=== PATIENT | male | born 1995 | race Caucasian/White ===

== ENCOUNTER 2025-01-09 04:33 | Emergency (ER) | payer MEDICAID, SELFPAY ==
[2025-01-09 04:45] VITALS: BP 158/96; PULSE 85; RESP 18; TEMP 36.8; O2SAT 93; BMI 43.2
--- NOTE | 2025-01-09 05:11 | ED_ITS ---
HPI - General Adult General: Chief complaint: General Medical Stated complaint: Very bad hemorrhoid Time Seen by Provider: 01/09/25 04:57 History of Present Illness: 29-year-old male presenting with an exte rnal hemorrhoid that has become painful over the last 24 to 48 hours. There is no bleeding. He can feel a lump. He has used Preparation H and other [id number] treatments without relief. Related Data Previous Rx's ?Medication ?Instructions ?Recorded hydrocodone 5 mg-acetaminophen 325 1 tab PO Q8H PRN pa in #7 tabs 01/09/25 mg tablet hydrocortisone acetate 25 mg 25 mg ID BID #12 ea 01/09 rectal suppository (Anusol-HC) Allergies Allergy/AdvReac Type Severity Reaction Status Date / Time No Known Allergies Allergy Verified 01/09/25 04:52 Physical Exam Const: COMMON NORMALS: no acute distress GENERAL APPEARANCE: cooperative; not ill appearing Chest: CHEST: Yes Symmetrical chest wall rise Resp: COMMON NORMALS: normal respiratory effort and No use of accessory muscles Cardio: COMMON NORMALS: regular rate and regular rhythm RATE: regular rate RHYTHM: regular rhythm GI: RECTAL EXAM: Yes hemorrhoids (Small external thrombosed) Neuro: ASHLY COMA SCALE: document GCS findings [place] coma scale eye opening: Spontaneous [place] coma scale verbal response: Orientated [place] coma scale motor response: Obey commands [place] coma scale total score: 15 Course Vital Signs: Vital signs: Vital Signs Temperature 98.3 F 01/09/25 04:45 Pulse Rate 80 01/09/25 05:45 Respiratory Rate 16 01/09/25 05:40 Blood Pressure 140/90 01/09/25 05:45 Pulse Oximetry 98 01/09/25 05:45 Oxygen Delivery Me thod Room Air 01/09/25 04:45 [facility] - General Adult Medical Decision Making Small thrombosed external hemorrhoid. Hydrocortisone suppositories, pain medication, sitz bath's. Close outpatient follow-up. May need incision/evacuation if these measures are ineffective. He knows this. No radiology studies performed this visit Discharge Plan Discharge Patient Disposition: Home Clinical Impression: External hemorrhoid, thrombosed Condition: Stable Prescriptions: New hydrocodone-acetaminophen 5-325 mg tablet 1 tab PO Q8H PRN (Reason: pain) Qty: 7 0RF hydrocortisone acetate [Anusol-HC] 25 mg suppository 25 mg ID BID Qty: 12 0RF Discharge Orders: Discharge ED (Routine); Ordered 01/09/25 Ordered By: Raymundo Villarreal Patient Instructions: Hemorrhoids (ED), Opioid Safety, Pain Management Activity Restrictions/Additional Instructions: Use suppositories twice daily until resolved. Medication for pain as needed. You may take ibuprofen alternating with pain medication if needed. 325 mg of aspirin daily may help as well. See your doctor next week for follow-up. Print Language: Ukrainian Coding Level of Care Code ED Low Vision Therapist for Mariana Cole
[2025-01-09 05:40] VITALS: RESP 16; O2SAT 97
[2025-01-09] MEDS: oxyCODONE-APAP 5-325 mg Tablet 2 TAB PO (05:40)
--- NOTE | 2025-01-09 05:44 | PC.NURSE ---
One tab of oxycodone 5-325 sent home per MD Villarreal. Signed out in book and scanned.
[2025-01-09 05:45] VITALS: BP 140/90; PULSE 80; O2SAT 98
== END 2025-01-09 05:40 | disposition home or self-care (01) ==
PROVIDERS: Emergency Provider Emergency Medicine
DX: K64.5 Perianal venous thrombosis (principal)
CPT/HCPCS: 99283; J9999

== ENCOUNTER 2025-01-13 15:40 | Emergency (ER) | payer MEDICAID, SELFPAY ==
[2025-01-13 16:23] VITALS: BP 115/72; PULSE 65; RESP 18; TEMP 36.7; O2SAT 98
--- NOTE | 2025-01-13 18:41 | ED_ITS ---
HPI - GI Bleed General: Chief complaint: General Medical Stated complaint: hemorhoid Time Seen by Provider: 01/13/25 18:33 Source: patient Mode of arrival: ambulatory Limitations: no limitations History of Present Illness: Patient is a 29-year-old male who presents to ED today with a complaint of a bleeding external hemorrhoid. Patient was seen here in the emergency department approximately 4 days ago and diagnosed with an external hemorrhoid. He was placed on pain medications and Anusol HC. Patient feels like the size of the hemorrhoid has decreased and he is no longer requiring pain medications as the pain has significantly improved. He states yesterday following a bowel movement he noticed bright red blood mixed with some darker red blood while wiping. On his next bowel movement noticed some blood mixed into the stool. MD complaint: other (bleeding hemorrhoid) Onset (ago): day(s) Pain Consistency: intermittent Severity: mild Relieving factors: none Exacerbating factors: bowel movement Context: hemorrhoids Associated symptoms: Reports no associated symptoms; Denies abdominal pain or fever(s) Treatments Prior to Arrival: suppositories Related Data Previous Rx's ?Medication ?Instructions ?Recorded hydrocodone 5 mg-acetaminophen 325 1 tab PO Q8H PRN pa in #7 tabs 01/09/25 mg tablet hydrocortisone acetate 25 mg 25 mg NM BID #12 ea 01/09 rectal suppository (Anusol-HC) Allergies Allergy/AdvReac Type Severity Reaction Status Date / Time No Known Allergies Allergy Verified 01/09/25 04:52 Review of Systems Const: Denies: fever(s) GI: Reports: rectal pain and hematochezia; Denies: abdominal pain, GI cramping, rectal swelling, rectal itching or melena Physical Exam Const: COMMON NORMALS: no acute distress, no limitations, alert and well nourished Cardio: COMMON NORMALS: regular rate RATE: regular rate GI: COMMON NORMALS: Normal to inspection, nondistended, normoactive bowel sounds present, Soft to palpation and non-tender PALPATION: Yes Soft to palpation RECTAL EXAM: Yes hemorrhoids (external hemorrhoid present- spontaneously opened-clot present) Neuro: SENSORIUM/ORIENTATION: Yes alert Course Vital Signs: Vital signs: Vital Signs Temperature 98.1 F 01/13/25 16:23 Pulse Rate 65 01/13/25 16:23 Respiratory Rate 18 01/13/25 16:23 Blood Pressure 115/72 01/13/25 16:23 Pulse Oximetry 98 01/13/25 16:23 Oxygen Delivery Me thod Room Air 01/13/25 16:23 MDM - GI Bleed Medical Decision Making Patient has an external hemorrhoid that has spontaneously opened/partially evacuated and he has had mild bleeding mainly with BMs. Re-assurance given that bleeding is usually self-limited and clot may continue to evacuate for the next few days. I did manually remove part of the clot-as much as he would tolerate. Will go ahead and place referral with general surgery in case symptoms do not improve over the next 1 to 2 weeks. Return to ED precautions discussed. Medical Records I reviewed the patient's medical records. No radiology studies performed this visit Discharge Plan Discharge Patient Disposition: Home Clinical Impression: External hemorrhoid, bleeding Condition: Stable Prescriptions: No Action hydrocodone-acetaminophen 5-325 mg tablet 1 tab PO Q8H PRN (Reason: pain) Qty: 7 0RF hydrocortisone acetate [Anusol-HC] 25 mg suppository 25 mg NM BID Qty: 12 0RF Discharge Orders: Discharge ED (Routine); Ordered 01/13/25 Ordered By: Anel Rico Patient Instructions: Hemorrhoids (DC), Thrombosed Hemorrhoid (ED) Activity Restrictions/Additional Instructions: As we discussed, continue using your suppositories as they seem to be working. You may continue to notice a small amount of bleeding especially after bowel movements as your external hemorrhoid has spontaneously began to evacuate. Continue using stool softeners to avoid straining. If bleeding becomes severe, you may seek emergent medical evaluation. Otherwise I will have case management place a referral for general surgery in case symptoms do not improve over the next 1 to 2 weeks. Print Language: Canadian Coding Level of Care Code ED Major Gifts Officer for Mariana Cole
--- NOTE | 2025-01-16 07:27 | DCPLANNER ---
messaged gen surg for er f/u
== END 2025-01-13 19:14 | disposition home or self-care (01) ==
PROVIDERS: Emergency Provider Physician Assistant
DX: K64.4 Residual hemorrhoidal skin tags (principal)
CPT/HCPCS: 99282

== ENCOUNTER 2025-09-07 12:54 | Emergency (ER) | payer MEDICAID, SELFPAY ==
[2025-09-07 12:56] VITALS: BP 152/76; PULSE 74; RESP 18; TEMP 36.8; O2SAT 98; BMI 43.4
[2025-09-07 13:28] LABS: Hematocrit 45.7 % (37-53); Hemoglobin 15.40 g/dL (11.27-16.99); Mean Corpuscular HGB Conc 33.7 g/dL (30-55); Mean Corpuscular Hemoglobin 29.2 pg (27-33); Mean Corpuscular Volume 86.6 fl (82-101); Nucleated Red Blood Cells % 0 %; Platelet Count 205 10^3/cmm (157-399); Red Blood Count 5.28 10^6/uL (3.85-5.65); White Blood Count 10.90 10^3/uL (3.29-11.43)
--- NOTE | 2025-09-07 13:48 | ED_ITS ---
HPI - Nausea/Vomiting/Diarrhea 2 General: Chief complaint: Nausea/Vomiting/Diarrhea Stated complaint: diarrhea Time Seen by Provider: 09/07/25 13:43 Source: patient Mode of arrival: ambulatory Limitations: no limitations History of Present Illness: Patient is a 29-year-old male who presents to ED today with a complaint of sulfa burps and diarrhea x 3 days. He states he has had sulfur burps before when he eats something that does not agree with me . He is not having any vomiting. He is continuing to eat and drink normally. He reports some mild diffuse abdominal cramping that is intermittent. He states diarrhea has been watery and he will have approximately 15+ stools daily. No recent sick contacts. No recent antibiotic use. No blood that he has noticed in his diarrhea. No fevers. No recent tick bites. States last week he was gutting a deer and got some deer blood on his hands that may have had open cuts and is worried about this. MD elicited complaint: diarrhea Onset (ago): day(s) Description of diarrhea: watery Associated nausea: No Associated abdominal pain: Yes ([id number]) Location of pain: Diffuse Radiation: diffuse Pain consistency: intermittent Severity: mild Quality: cramping Exacerbating factors: none Relieving factors: bowel movement Associated symtoms: Denies chest pain, dysuria, fatigue, headache(s), malaise or nausea Related Data Previous Rx's ?Medication ?Instructions ?Recorded hydrocodone 5 mg-acetaminophen 325 1 tab PO Q8H PRN pa in #7 tabs 01/09/25 mg tablet hydrocortisone acetate 25 mg 25 mg [place] BID #12 ea 01/09 rectal suppository (Anusol-HC) Allergies Allergy/AdvReac Type Severity Reaction Status Date / Time No Known Allergies Allergy Verified 09/07/25 13:03 Review of Systems 2 Const: Denies: fever(s), chills, body aches, fatigue or malaise Card: Denies: chest pain Resp: Denies: dyspnea GI: Reports: abdominal pain, diarrhea and GI cramping; Denies: nausea, vomiting, hematemesis, hematochezia or melena : Denies: flank pain, dysuria or hematuria Musc: Denies: joint pain Skin/Breast: Denies: rash Neuro: Denies: headache(s) Physical Exam 2 Const: COMMON NORMALS: no acute distress, patient oriented x3, no limitations, alert and well nourished GENERAL APPEARANCE: cooperative NUTRITIONAL APPEARANCE: obese HENMT: COMMON NORMALS: normocephalic and atraumatic HEAD & SCALP: n ormocephalic and atraumatic Eye: COMMON NORMALS: no scleral icterus Neck/C-Spine: COMMON NORMALS: full ROM, no lymphadenopathy, supple and no meningeal signs Chest: COMMONS NORMALS: normal inspection of the chest Resp: COMMON NORMALS: normal respiratory effort and clear to auscultation bilaterally AUSCULTATION: clear to auscultation bilaterally Cardio: COMMON NORMALS: regular rate and regular rhythm RATE: regular rate RHYTHM: regular rhythm GI: COMMON NORMALS: Normal to inspection, nondistended, normoactive bowel sounds present, Soft to palpation, non-tender, No hepatosplenomegaly present and no masses PALPATION: Yes Soft to palpation and Yes No hepatosplenomegaly present : COMMON NORMALS: Yes no CVA tenderness BLADDER/KIDNEY EXAM: Yes no CVA tenderness Back/Pelvis: COMMON NORMALS: no CVA tenderness and thoracic and lumbar spine normal to inspection Extremity: COMMON NORMALS: normal to inspection Neuro: COMMON NORMALS: patient oriented x3 SENSORIUM/ORIENTATION: Yes alert MENINGEAL SIGNS: Yes no meningeal signs Skin: COMMON NORMALS: no rashes or lesions noted GENERAL SKIN EXAM: no rashes or lesions noted Course 2 Vital Signs: Vital signs: Vital Signs Temperature 98.3 F 09/07/25 12:56 Pulse Rate 76 09/07/25 14:05 Respiratory Rate 18 09/07/25 12:56 Blood Pressure 125/68 09/07/25 14:05 Pulse Oximetry 97 09/07/25 14:05 Oxygen Delivery Me thod Room Air 09/07/25 12:56 MDM - Nausea/Vomiting/Diarrhea Medical Decision Making Patient is a 29-year-old male here for complaints of diarrhea, mild intermittent cramping, and sulfur burps over the past few days. DDx includes gastroenteritis, SBO, enteritis, colitis, food poisoning, c.difficile, gastroparesis, among others. Patient clinically appears in no acute distress. His vital signs are stable. Abdomen is non-surgical. Blood work showing a normal white count. Chemistry is unremarkable apart from mildly elevated LFTs. No previous comparisons. Could be secondary to hepatic steatosis the patient's BMI is over 43 or transient from viral illness. He did not initially think he could give stool samples but I believe these were collected at the end of patient's visit. Recommend follow-up with primary care so they can follow-up on these cultures and repeat liver enzymes if needed. Return ED precautions discussed. Differential Diagnosis Likely traveler's diarrhea, food poisoning, gastroenteritis, clostridium difficile infection, drug-induced nausea and vomiting and dehydration Medical Records I reviewed the patient's medical records. Lab Data I reviewed the patient's lab results. 09/07/25 13:22 09/07/25 13:22 Laboratory Results WBC 10.90 10^3/uL (3.29-11.43) 09/07/25 13:22 RBC 5.28 10^6/uL (3.85-5.65) 09/07/25 13:22 Hgb 15.40 g/dL (11.27-16.99) 09/07/25 13:22 Hct 45.7 % (37-53) 09/07/25 13:22 MCV 86.6 fl (82-101) 09/07/25 13:22 MCH 29.2 pg (27-33) 09/07/25 13:22 MCHC 33.7 g/dL (30-55) 09/07/25 13:22 RDW 12.9 % (12.1-15.1) 09/07/25 13:22 Plt Count 205 10^3/cmm (157-399) 09/07/25 13:22 MPV 10.4 fL (7.4-10.4) 09/07/25 13:22 Neut % (Auto) 60.4 % 09/07/25 13:22 Lymph % (Auto) 26.5 % 09/07/25 13:22 [place] % (Auto) 8.7 % 09/07/25 13:22 Eos % (Auto) 3.6 % 09/07/25 13:22 Baso % (Auto) 0.5 % 09/07/25 13:22 Neut # (Auto) 6.59 10^3/uL (1.8-7.7) 09/07/25 13:22 Lymph # (Auto) 2.9 10^3/uL (0.8-4.8) 09/07/25 13:22 [place] # (Auto) 1.0 10^3/uL (0.2-0.9) H 09/07/25 13:22 Eos # (Auto) 0.4 10^3/uL (0.0-0.8) 09/07/25 13:22 Baso # (Auto) 0.1 10^3/uL (0.0-0.1) 09/07/25 13:22 Nucleated RBC % (auto) 0 % 09/07/25 13:22 Nucleated RBCs # 0.0 /100WBC 09/07/25 13:22 Sodium 140 mmol/L (136-145) 09/07/25 13:22 Potassium 4.2 mmol/L (3.5-5.1) 09/07/25 13:22 Chloride 104 mmol/L (98-107) 09/07/25 13:22 Carbon Dioxide 28 mmol/L (22-29) 09/07/25 13:22 Anion Gap 12.2 (5-19) 09/07/25 13:22 BUN 13 mg/dL (6-20) 09/07/25 13:22 Creatinine 0.8 mg/dL (0.7-1.2) 09/07/25 13:22 GFR Calculation 116.0 mL/min (90-130) 09/07/25 13:22 Glucose 82 mg/dL (65-115) 09/07/25 13:22 Calculated Osmolality 289 mOsm/kg (285-295) 09/07/25 13:22 Lactic Acid 0.8 mmol/L (0.5-2.2) 09/07/25 13:22 Calcium 9.2 mg/dL (8.5-10.5) 09/07/25 13:22 Magnesium 2.2 mg/dL (1.7-2.3) 09/07/25 13:22 Total Bilirubin 0.4 mg/dL (0.15-1.2) 09/07/25 13:22 AST 50 U/L (0-40) H 09/07/25 13:22 ALT 93 U/L (0-41) H 09/07/25 13:22 Alkaline Phosphatase 131 U/L (40-130) H 09/07/25 13:22 Total Protein 7.0 g/dL (6.6-8.7) 09/07/25 13:22 Albumin 4.4 g/dL (3.5-5.2) 09/07/25 13:22 Globulin 2.6 g/dL (1.3-4.6) 09/07/25 13:22 Urine Color Yellow (Yellow) 09/07/25 13:50 Urine Appearance Clear (CLEAR) 09/07/25 13:50 Urine pH 6.0 (5-7) 09/07/25 13:50 Ur Specific [place] 1.023 (1.005-1.030) 09/07/25 13:50 Urine Protein Negative (Negative) 09/07/25 13:50 Urine Glucose (UA) Negative (Normal) 09/07/25 13:50 Urine Ketones Negative (Negative) 09/07/25 13:50 Urine Blood Negative (Negative) 09/07/25 13:50 Urine Nitrate Negative (Negative) 09/07/25 13:50 Urine Bilirubin Negative (Negative) 09/07/25 13:50 Urine Urobilinogen 1.0 mg/dL (Negative) 09/07/25 13:50 Ur Leukocyte Esterase Negative (Negative) 09/07/25 13:50 Urine RBC 0-2 /hpf (0-2) 09/07/25 13:50 Urine WBC 0-5 /hpf (0-5) 09/07/25 13:50 Ur Squamous Epith Cells 0-5 /hpf (0-5) 09/07/25 13:50 Amorphous Sediment Not Reportable 09/07/25 13:50 Urine Bacteria None seen /hpf (NONE) 09/07/25 13:50 Hyaline Casts 0-4 /lpf H 09/07/25 13:50 No radiology studies performed this visit Discharge Plan Discharge Patient Disposition: Home Clinical Impression: Gastroenteritis Condition: Stable Prescriptions: No Action hydrocodone-acetaminophen 5-325 mg tablet 1 tab PO Q8H PRN (Reason: pain) Qty: 7 0RF hydrocortisone acetate [Anusol-HC] 25 mg suppository 25 mg [place] BID Qty: 12 0RF Discharge Orders: Discharge ED (Routine); Ordered 09/07/25 Ordered By: Anel Rico Patient Instructions: Gastroenteritis (DC), Patient Portal & Alli Instructions Activity Restrictions/Additional Instructions: As we discussed, if diarrhea persists, you can follow-up with primary care and provide stool samples to them as you were not able to provide one today. We discussed having them recheck your liver enzymes as they were mildly elevated today-this could be due to fatty liver versus transient elevation due to a viral illness. We need to see you back in the emergency department for onset of severe abdominal pain, repetitive episodes of vomiting, bloody stools, fevers, generally feeling worse or unwell, or any other concerns you may have. I hope you begin to feel better soon. Print Language: Jamaican Coding Level of Care Code ED Senior [employer] Net Developer for Mariana Cole
[2025-09-07 13:52] LABS: Alanine Aminotransferase 93 U/L (0-41); Albumin Level 4.4 g/dL (3.5-5.2); Alkaline Phosphatase 131 U/L (40-130); Anion Gap 12.2 (5-19); Aspartate Amino Transferase 50 U/L (0-40); Blood Urea Nitrogen 13 mg/dL (6-20); Calcium 9.2 mg/dL (8.5-10.5); Carbon Dioxide 28 mmol/L (22-29); Chloride 104 mmol/L (98-107); Globulin 2.6 g/dL (1.3-4.6); Glucose 82 mg/dL (65-115); Magnesium 2.2 mg/dL (1.7-2.3); Osmolality Calculated 289 mOsm/kg (285-295); Potassium 4.2 mmol/L (3.5-5.1); Sodium 140 mmol/L (136-145); Total Protein 7.0 g/dL (6.6-8.7)
[2025-09-07 13:53] LABS: Lactic Sepsis W/Reflex 0.8 mmol/L (0.5-2.2)
[2025-09-07 14:04] LABS: Glucose Urine UA Negative (Normal); Nitrate Urine Negative (Negative); Specific Gravity, Urine 1.023 (1.005-1.030)
[2025-09-07 14:05] VITALS: BP 125/68; PULSE 76; O2SAT 97
[2025-09-07 14:09] LABS: Add Urine Microscopic? YES
[2025-09-07 15:02] LABS: C.Diff PCR (Lab) NEGATIVE (Negative)
--- OUTSIDE RECORDS SUMMARY | 2025-09-07 15:03 | XMS_ITS | Clinical Summary ---
Author Organization [facility] Address [address] [place] [address] Care Team Providers Care Physics Teacher Name Role Phone Vitaliy Dias, NATHALY, Ky Barnes Primary Care Pro vider Allergies No known active allergies Medications No known medications Active Problems Problem Noted Date Diagnosed Date Second hand tobacco smoke exposure 10/13/2016 Immunizations Immunization Administration Dates Next Due (ADACEL/BOOSTRIX)(10 YR UP) TDAP VACCINE, 0.5ML, IM 08/04/2011 (INFANRIX)(6 WKS-6 YRS) DIPT HERIA, TETANUS TOXOIDS, AND ACCELLULAR PERTUSSIS VACCINE (DTAP), 0.5 ML IM 04/28/2001 (IPOL)(6 WKS AND UP) POLIOVI MARY LOU VACCINE, INACTIVATED (IPV), 3 DOSE, SUBCUT OR IM 04/28/2002,02/12/2001 (M-M-R II/PRIORIX)(12 MO UP) MEASLES, MUMPS AND RUBELLA VIRUS VACCINE, 0.5 ML IM/SUBCUT 04/28/2002,02/12/2001 Dt Dtp Dtap Vaccine 02/12/2001, 8,02/06/1998,1997 HIB, Unspecified Formulation 02/12/2001, 04/16/1998,02/06/1998,1997 Hepatitis B Vaccine 04/16/1998,1997,1996 IPV/OPV 04/16/1998,02/06/1998,1997 Family History Medical History Relation Name Comments Healthy Father Diabetes Maternal Grandfather Other Maternal Grandmother unknown Healthy Mother Colon Cancer Other mggf Cancer Paternal Grandfather Diabetes Paternal Grandmother Breast Cancer Neg Hx Relation Name Status Comments Father Maternal Grandfather Maternal Grandmother Mother Other mggf Alive Paternal Grandfather Paternal Grandmother Social History Tobacco Use Types Packs/Day Years Used Date Smoking Tobacco: Every Day Cigarettes Smokeless Tobacco: Never Alcohol Use Standard Drinks/Week Comments No 0 (1 standard drink = 0.6 oz pur e alcohol) Sex and Gender Information Value Date Recorded Sex Assigned at Not on file 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 Gender Identity Not on file Sexual Orientation Not on file Occupation Industry Job Start Date Job End Date Not on file Not on file Not on file Not on file Last Filed Vital Signs Vital Sign Reading Time Taken Comments Blood Pressure 104/88 05/22/2020 8:23 PM CDT Pulse 60 05/22/2020 7:00 PM CDT Temperature 37 C (98.6 F) 05/22/2020 8:23 PM CDT Respiratory Rate 20 05/22/2020 8:23 PM CDT Oxygen Saturation 99% 05/22/2020 8:23 PM CDT Inhaled Oxygen Concentration - - Weight 126.4 kg (278 lb 10.6 oz) 05/22/2020 5:57 PM CDT Height 182.9 cm (6') 05/22/2020 5:57 PM CDT Body Mass Index 37.79 05/22/2020 5:57 PM CDT Plan of Treatment Health Maintenance Due Date Last Done Comments DTAP/TDAP/TD VACCINES (6 - T d or Tdap) 08/04/2021 08/04/2011, 04/28/2001, 02/12/2001, Additional history exists HPV VACCINES (1 - 3-dose SCD M series) 2024 INFLUENZA VACCINE (#1) 2025 HEPATITIS B VACCINES Completed 04/16/1998, 1997, 1997 Insurance [employer] Care Teams Physics Teacher Relationship Specialty Start Date End Date Vitaliy Dias, NATHALY Chaves [address] [place] [address] PCP - General NURSE PRACTITIONER 04/15/14
--- OUTSIDE RECORDS SUMMARY | 2025-09-07 15:04 | XMS_ITS | Clinical Summary ---
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
--- OUTSIDE RECORDS SUMMARY | 2025-09-07 15:04 | XMS_ITS | Encounter Summary ---
Author Organization [facility] Address [address] [place] [address] Care Team Providers Care Machine Assembler Name Role Phone NATHALY Burks Sr., Ky Barnes Primary Care Pro vider Encounter Details Date Type Department Care Team (Latest Contact Info) Description 07/15/2001 Outpatient Historical [facility] [place] [facility] [address] [place] [phone] Jordyn Russo MD NO ADDRESS ON FILE Streptococcal sore throat (Primary Dx) Social History Tobacco Use Types Packs/Day Years Used Date Smoking Tobacco: Never Assessed Sex and Gender Information Value Date Recorded Sex Assigned at Not on file 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
--- OUTSIDE RECORDS SUMMARY | 2025-09-07 15:04 | XMS_ITS | Encounter Summary ---
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
--- OUTSIDE RECORDS SUMMARY | 2025-09-07 15:04 | XMS_ITS | Encounter Summary ---
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
--- OUTSIDE RECORDS SUMMARY | 2025-09-07 15:05 | XMS_ITS | Encounter Summary ---
Author Organization [facility] Address [address] [place] [address] Care Team Providers Care Clay Temperer Name Role Phone NATHALY Burks Sr., Ky Barnes Primary Care Pro vider Encounter Details Date Type Department Care Team (Latest Contact Info) Description 06/09/2001 Outpatient Historical [facility] Family Medicine- [place] [address] [place] [id number] Greg Terrazas, DO NO ADDRESS ON FILE Streptococcal sore throat (Primary Dx); Unspecified otitis media Social History Tobacco Use Types Packs/Day Years Used Date Smoking Tobacco: Never Assessed Sex and Gender Information Value Date Recorded Sex Assigned at Not on file 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
--- OUTSIDE RECORDS SUMMARY | 2025-09-07 15:05 | XMS_ITS | Encounter Summary ---
Author Organization [facility] Address [address] [place] [address] Care Team Providers Care Box Maker Name Role Phone NATHALY Burks Sr., Michael Dave Primary Care Pro vider Encounter Details Date Type Department Care Team (Latest Contact Info) Description 07/04/1999 Outpatient Historical [facility] Family [facility] [place] [address] [facility] 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
== END 2025-09-07 14:24 | disposition home or self-care (01) ==
PROVIDERS: Emergency Provider Physician Assistant
DX: K52.9 Noninfective gastroenteritis and colitis, unspecified (principal)
CPT/HCPCS: 36415; 80053; 81001; 82274; 83605; 83630; 83735; 85025; 87045; 87177; 87209; 87427; 87449; 87493; 99283